=== PATIENT | male | born 1965 | race Caucasian/White ===

== ENCOUNTER 2017-01-23 13:49 | Emergency (ER) | payer OTHER ==
[~2017-01-23] VITALS: Ht 165.1 cm; Wt 68.0 kg
--- NOTE | 2017-01-23 13:49 | NUR ---
Patient was BIBA at this time and taken to bed 03 via gurney per EMS.
--- NOTE | 2017-01-23 13:52 | NUR ---
PT AMBULATE TO BED 3.
[2017-01-23 13:55] VITALS: BP 150/78
--- NOTE | 2017-01-23 14:01 | NUR ---
PT BIBA FOR EVALUATION OF NEAR-SYNCOPAL EPISODE S/P FALL. HX DOWN SYNDROME, HYPOTHYROIDISM, HYPERLIPIDEMIA; C/O DIZZINESS; DENIES N/V/D; SKIN IS PINK/WARM/DRY; AAOX4 WITH EVEN AND STEADY GAIT; LUNGS CLEAR BL; HR EVEN AND REGULAR; PT DENIES ANY FEVER, CP, SOB, OR COUGH AT THIS TIME; PATIENT STATES HEAD ACHE PAIN OF 1/10 AT THIS TIME; VSS; PATIENT POSITIONED FOR COMFORT; HOB ELEVATED; BEDRAILS UP X2; BED DOWN. ER MD MADE AWARE OF PT STATUS.
--- NOTE | 2017-01-23 14:02 | NUR ---
Dr. Harkins evaluating patient at bedside.
[2017-01-23] MEDS: MECLIZINE 25 MG TAB PO ONE (14:15)
[2017-01-23] MEDS: ACETAMINOPHEN EXTRA STRENGTH 500 MG TAB PO ONE (14:16)
--- NOTE | 2017-01-23 14:17 | NUR ---
AAO PT RESTING COMFORTABLY ON BED ON MONITOR, ORAL MEDS GIVEN, WILL CONTINUE TO MONITOR
[2017-01-23 15:04] VITALS: BP 140/70
--- NOTE | 2017-01-23 15:04 | NUR ---
Patient discharged with v/s stable. Written and verbal after care instructions given and explained. Patient alert, oriented and verbalized understanding of instructions. Ambulatory with by caregiver. All questions addressed prior to discharge. ID band removed. Patient advised to follow up with PMD. Rx of MECLIZINE given. Patient educated on indication of medication including possible reaction and side effects. Opportunity to ask questions provided and answered.
== END 2017-01-23 15:04 | disposition home or self-care (01) ==
LOC: MED 13:49
DX: S09.90XA Unspecified injury of head, initial encounter (principal); W19.XXXA Unspecified fall, initial encounter; Y93.89 Activity, other specified; Y92.89 Other specified places as the place of occurrence of the external cause; Y99.8 Other external cause status
CPT/HCPCS: 99283; J8597